=== PATIENT | female | born 1980 | race African-American/Black ===

== ENCOUNTER 2023-12-13 15:53 | Emergency (ER) | payer MEDICAID ==
[~2023-12-13] VITALS: Ht 172.7 cm; Wt 105.2 kg
[2023-12-13] MEDS ORDERED: CYCLOBENZAPRINE 10 MG TABLET ONE (17:19)
[2023-12-13] MEDS ORDERED: oxyCODONE/APAP (5/325 MG) 1 UDTAB TABLET ONE (17:19)
[2023-12-13] MEDS: LIDOCAINE 5% OINT 35.44 GM TUBE TP STA (17:43)
[2023-12-13 17:44] LABS: BASOPHILS # (AUTO) 0.1 K/uL (0.0-0.2); EOSINOPHILS # (AUTO) 0.2 K/uL (0.0-0.7); EOSINOPHILS % (AUTO) 2.7 % (0.0-6.0); HEMATOCRIT 36 % (33-45); HEMOGLOBIN 11.7 g/dL (11.5-14.8); LYMPHOCYTES % (AUTO) 16.4 % (20.0-44.0); MEAN CORPUSCULAR HEMOGLOBIN 29 PG (26.0-33.0); MEAN CORPUSCULAR HGB CONC 33 g/dl (31.0-36.0); MEAN CORPUSCULAR VOLUME 89 fL (82-100); MONOCYTES # (AUTO) 0.4 K/uL (0.1-1.30); NEUTROPHILS # (AUTO) 4.5 K/uL (1.8-8.9); NEUTROPHILS % (AUTO) 71.9 % (43.0-81.0); PLATELET COUNT (AUTO) 195 K/uL (150-450); RED BLOOD CELL COUNT(AUTO) 4.01 MIL/uL (4.0-5.2); RED CELL DISTRIBUTION WIDTH 16.5 % (11.5-15.0); WHITE BLOOD COUNT (AUTO) 6.2 K/uL (4.3-11.0)
[2023-12-13] MEDS: CYCLOBENZAPRINE 10 MG TABLET PO ONE (17:45)
[2023-12-13] MEDS: oxyCODONE/APAP (5/325 MG) 1 UDTAB TABLET PO ONE (17:45)
[2023-12-13] MEDS: LIDOCAINE 5% (PATCH) 1 EA PATCH TP STA (17:45)
[2023-12-13 18:09] LABS: CALCIUM, SERUM 7.9 mg/dL (8.5-10.1); CREATININE 0.8 mg/dL (0.6-1.3)
[2023-12-13 18:11] LABS: POTASSIUM 6.3 mmol/L (3.5-5.1)
[2023-12-13] MEDS ORDERED: HYDROMORPHONE 1 MG/1 ML DISP.SYRIN ONE ×2 (18:11→21:24)
[2023-12-13] MEDS ORDERED: diphenhydrAMINE HCL 50 MG/ML VIAL ONE (18:11)
[2023-12-13] MEDS: HYDROMORPHONE 1 MG/1 ML DISP.SYRIN IV ONE ×2 (18:17→21:26)
[2023-12-13] MEDS: diphenhydrAMINE HCL 50 MG/ML VIAL IV ONE (18:17)
[2023-12-13] MEDS ORDERED: IOHEXOL-300 100 ML VIAL IV ONE ×2 (18:39→19:09)
[2023-12-13] MEDS ORDERED: CT SWABBABLE VALVE TRANS SET 1 EA INFUS.SET MC ONE (18:41)
[2023-12-13 19:51] LABS: PREGNANCY TEST URINE QUAL NEGATIVE (NEGATIVE)
[2023-12-13 19:58] LABS: POTASSIUM 3.7 mmol/L (3.5-5.1)
[2023-12-13 19:59] LABS: CALCIUM, SERUM 7.7 mg/dL (8.5-10.1)
[2023-12-13] MEDS: IV NS 0.9% 1,000 ML BAG IV ONE (20:39)
[2023-12-13] MEDS: IV D5 LR 1,000 ML IV ONE (20:42)
[2023-12-13] MEDS ORDERED: OXYC-128 PO (21:42)
[2023-12-13] MEDS ORDERED: LIDO28.310 TP (21:42)
[2023-12-13] MEDS ORDERED: IBUP-1953 PO (21:42)
[2023-12-13 22:08] VITALS: BP 134/89; TEMP 98.1; O2SAT 99
== END 2023-12-13 22:17 | disposition home or self-care (01) ==
LOC: ER 16:02
DX: M25.512 Pain in left shoulder (principal); R10.30 Lower abdominal pain, unspecified; R10.2 Pelvic and perineal pain; I10 Essential (primary) hypertension; Z88.0 Allergy status to penicillin; Z88.8 Allergy status to other drugs, medicaments and biological substances; V89.2XXA Person injured in unspecified motor-vehicle accident, traffic, initial encounter; Y93.89 Activity, other specified; Y92.411 Interstate highway as the place of occurrence of the external cause; Y99.8 Other external cause status
CPT/HCPCS: 99285; 71260; 96374; 96361; 96375; 93005; 73030; 74177; 85025; 80048 ×2; 84703; 36415; 84702; 84132; 96376; J1200; J3490 ×2; J7030 ×2; Q9967 ×2; J1170 ×2